=== PATIENT | female | born 2000 | race Caucasian/White ===

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

== ENCOUNTER → 2022-05-06 | Outpatient (CLI) | payer MEDICAID ==
[~2022-05-06] MED LIST changes: +ACHD5005 PO; +BENZ78AE5 TP; +DIBU30OI TOP; +DOCU-239 PO; +FERR325T18 PO; +IBUP-844 PO
--- NOTE | 2022-05-06 17:16 | Diagnostic Imaging Report ---
INDICATION: patient, anatomical survey. TECHNIQUE: Multiple real-time grayscale images were obtained over the gravid uterus. COMPARISON: None during this . FINDINGS: A single live intrauterine fetus is seen measuring 20 weeks 4 days by composite measurements. The fetus is in breech presentation. heart rate is 129 bpm. Amniotic fluid index is 7.8 cm. Placenta is posterior with no evidence of previa. Cervical length is 4.2 cm. Distance from the inferior tip of the placenta to the internal os was 4.7 cm. There is no evidence of abruption. Maternal adnexa were not well seen but there is no overt free fluid. survey demonstrates normal appearance of the kidneys and bladder. stomach was seen and was unremarkable. The intracranial ventricles were normal. Four-chamber heart view appeared normal. Views of the spine were unremarkable. Three-vessel cord and cord insertion appeared unremarkable. Biometrical measurements are as follows: Biparietal 4.40 cm, age 19 weeks 3 days. Head circumference 18.13 cm, age 20 weeks 4 days. Abdominal circumference 15.74 cm, age 21 weeks 0 days. Femur length 3.48 cm, age 21 weeks 0 days. Sonographic estimate age: 20 weeks 4 days. Sonographic estimated date of delivery: 09/19/2022. Estimated Weight: 380 gm (+/- 56 gm). LMP percentile: 43%. heart rate: 129 beats per minute. number: 1 of 1. IMPRESSION: Single live intrauterine fetus measuring 20 weeks 4 days in size, as described above. There is no detectable abnormality. The fetus is in breech presentation at this time. Dictated by: Dictated on workstation # [id number]
== END ==
LOC: RAD 15:15
PROVIDERS: ATTEND Nurse Practitioner Women's Health
DX: Z34.02 Encounter for supervision of normal first pregnancy, second trimester (principal); Z3A.20 20 weeks gestation of pregnancy
CPT/HCPCS: 76805

== ENCOUNTER 2022-08-12 19:31 | Outpatient (CLI) | payer MEDICAID ==
[~2022-08-12] VITALS: Ht 170.2 cm; Wt 128.6 kg
[2022-08-12 18:33] VITALS: BP 103/53
[2022-08-12 19:15] VITALS: BP 103/53
[2022-08-12 19:42] VITALS: BP 103/53
--- NOTE | 2022-08-13 09:16 | Physician Query-Final Dx ---
CHRISTINA08/13/22 0916: Clinic Account Progress/Dx Physician Query: Please give diagnosis Please include # weeks gestation Date of Service Aug 12, 2022 at 19:31 EZEKIEL LOPEZ DO 08/13/22 0933: Clinic Account Progress/Dx DIAGNOSIS: Diagnosis 22 yo @ 33 weeks Decreased movement Irregular cramping CHRISTINA,SepAug 13, 2022 09:16 EZEKIEL LOPEZ DO Aug 13, 2022 09:33
== END 2022-08-12 19:42 | disposition home or self-care (01) ==
LOC: WSo 19:31 → LDRP 19:31 → WSo 19:42
PROVIDERS: ATTEND Obstetrics & Gynecology
DX: O36.8130 Decreased fetal movements, third trimester, not applicable or unspecified (principal); Z3A.33 33 weeks gestation of pregnancy

== ENCOUNTER 2022-09-13 06:30 | Inpatient (IN) | payer MEDICAID ==
[~2022-09-13] VITALS: Ht 170.2 cm; Wt 129.5 kg
[2022-09-13] VITALS (64 sets, daily range): BP systolic 94–148; BP diastolic 49–84
--- OUTSIDE RECORDS SUMMARY | 2022-09-13 06:42 | XMS REPORT | Clinical Summary ---
Author Author [facility] Address Unknown Phone Unavailable Care Team Providers Care Manager Cleaning Name Role Phone Benjy Serna MD PCP Allergies No known active allergies Medications No known medications Active Problems Comments Yes No additional problems on file Social History Date Tobacco Use Types Packs/Day Years Used Smoking Tobacco: Never Assessed Comments Yes Sex Assigned at Date Recorded Not on file Last Filed Vital Signs Reading Time Taken Comments Vital Sign 106/58 02/21/2022 12:04 AM CDT Blood Pressure 82 02/21/2022 12:35 AM CDT Pulse 37.1 C (98.8 F) 02/21/2022 12:04 AM CDT Temperature 18 02/21/2022 12:04 AM CDT Respiratory Rate 98% 02/21/2022 12:35 AM CDT Oxygen Saturation - - Inhaled Oxygen Concentration 122.6 kg (270 lb 4.8 oz) 02/20/2022 10:16 PM CDT Weight 170.2 cm (5' 7") 02/20/2022 10:16 PM CDT Height 42.33 02/20/2022 10:16 PM CDT Body Mass Index Plan of Treatment Health Maintenance Due Date Last Done Comments COVID-19 Vaccine (#1) 2001 HPV Vaccines (1 - 2-dose 2012 series) MenB Vaccine (Bexsero) (1 2017 of 2) Cervical Cancer Screening 2022 Influenza Vaccine (#1) 2022 DTaP,Tdap,and Td Vaccines 09/30/2030 09/30/2020, (8 - Td or Tdap) 11/08/2012, 06/27/2006, Additional history exists HIB Vaccines Completed 10/10/2003, 2001, 2001 IPV Vaccines Completed 06/27/2006, 10/10/2003, 2001, Additional history exists MMR Vaccines-Adult Completed 06/27/2006, 10/10/2003 Varicella Vaccines Completed 08/28/2009, 10/10/2003 Meningococcal Vaccine Aged Out 05/10/2013 No longe r eligible based on patient's age to complete this topic HIV Screening Completed 01/22/2022 Hepatitis C Screening Completed 01/22/2022 Pneumo-Vaccine: At Risk Aged Out No longer elig ible based on patient's age to 6-64 Yrs complete this topic Rotavirus Vaccines Aged Out No longer eligible based on patient's age to complete this topic Results Not on filefrom Last 3 Months Insurance Type Payer Benefit Subscriber ID Effective Phone Address Plan / Dates Group [facility] 19 [id number] 2022-P [id number] Care Teams Start Date End Date Manager Cleaning Relationship Specialty 02/20/22 Benjy Serna MD PCP - General [address] [place] [address]
--- OUTSIDE RECORDS SUMMARY | 2022-09-13 06:42 | XMS REPORT | Clinical Summary ---
Author Author [facility] Address Unknown Phone Unavailable Care Team Providers Care Motel Manager Name Role Phone Pcp, None PCP Unavailable Allergies No known active allergies Medications No known medications Active Problems Estimated Date of Delivery Comments Yes 09/21/2022 Based on Ultrasound No additional problems on file Social History Date Tobacco Use Types Packs/Day Years Used Smoking Tobacco: Never Smokeless Tobacco: Never Comments Alcohol Use Standard Drinks/Week Never 0 (1 standard drink = 0.6 o z pure alcohol) Estimated Date of Delivery Comments Yes 09/21/2022 Based on Ultrasound Sex Assigned at Date Recorded Female 01/30/2022 2:27 PM CDT Industry Job Start Date Occupation Not on file Not on file Not on file Last Filed Vital Signs Reading Time Taken Comments Vital Sign - - Blood Pressure - - Pulse - - Temperature - - Respiratory Rate - - Oxygen Saturation - - Inhaled Oxygen Concentration 121 kg (266 lb) 01/22/2022 10:09 AM CDT Weight 170.2 cm (5' 7") 01/22/2022 10:09 AM CDT Height 41.66 01/22/2022 10:09 AM CDT Body Mass Index Plan of Treatment Health Maintenance Due Date Last Done Comments Preventative Visit 18-64 2001 COVID-19 Vaccine (#1) 2001 HPV Vaccines (1 - 2-dose 2012 series) Depression Screening 2013 Pap Smear 2022 Influenza Vaccine (#1) 2022 DTaP,Tdap,and Td Vaccines 09/30/2030 09/30/2020, (8 - Td or Tdap) 11/08/2012, 06/27/2006, Additional history exists HIB Vaccines Completed 10/10/2003, 2001, 2001 Hepatitis B Vaccines Completed 10/10/2003, 2001, 2001 Hepatitis A Vaccines Completed 05/25/2004, 10/10/2003 IPV Vaccines Completed 06/27/2006, 10/10/2003, 2001, Additional history exists MMR Vaccines Completed 06/27/2006, 10/10/2003 Varicella Vaccines Completed 08/28/2009, 10/10/2003 Meningococcal Vaccine Aged Out 05/10/2013 No longe r eligible based on patient's age to complete this topic Hepatitis C Screening Completed 01/22/2022 Pneumococcal Aged Out No longer eligible based on patient's age to complete this topic Results Not on filefrom Last 3 Months Insurance Type Payer Benefit Subscriber ID Effective Phone Address Plan / Dates Group [facility] MEDICAID REPLACEMENT [facility] [id number] 2022- [address] MEDICAID Present [id number] [facility] [place] [id number] Care Teams Start Date End Date Motel Manager Relationship Specialty 01/22/22 Pcp, None PCP - General Family 0000 Medicine
[2022-09-13] MEDS ORDERED: OXYTOCIN PRE-MIX DRIP 500 ML IV SCH (06:45)
[2022-09-13 07:10] LABS: BASOPHILS % (AUTO) 0 % (0-10); EOSINOPHILS # (AUTO) 0.2 10^3/uL (0.0-0.3); EOSINOPHILS % (AUTO) 2 % (0-10); HEMATOCRIT 33 % (35-52); HEMOGLOBIN 11.2 g/dL (11.5-16.0); LYMPHOCYTES # (AUTO) 1.2 10^3/uL (1.0-4.0); LYMPHOCYTES % (AUTO) 11 % (12-44); MEAN CORPUSCULAR HEMOGLOBIN 29 pg (25-34); MEAN CORPUSCULAR HGB CONC 34 g/dL (32-36); MEAN CORPUSCULAR VOLUME 87 fL (80-99); MEAN PLATELET VOLUME 11.2 fL (9.0-12.2); MONOCYTES # (AUTO) 0.8 10^3/uL (0.0-1.0); MONOCYTES % (AUTO) 7 % (0-12); NEUTROPHILS # (AUTO) 8.5 10^3/uL (1.8-7.8); NEUTROPHILS % (AUTO) 79 % (42-75); PLATELET COUNT 221 10^3/uL (130-400); WHITE BLOOD COUNT 10.8 10^3/uL (4.3-11.0)
[2022-09-13] MEDS: D5 LR IV SOLUTION 1,000 ML IV SCH ×2 (07:11→15:27)
[2022-09-13] MEDS ORDERED: AMPICILLIN FOR IV USE 2,000 MG in NS (IVPB) 50 ML IV ONE (07:12)
[2022-09-13 07:15] LABS: BILIRUBIN,URINE NEGATIVE (NEGATIVE); CLARITY,URINE CLEAR; COLOR,URINE YELLOW; GLUCOSE, URINE (UA) NEGATIVE (NEGATIVE); KETONES,URINE NEGATIVE (NEGATIVE); LEUKOCYTE ESTERASE ,URINE 2+ (NEGATIVE); NITRITE,URINE NEGATIVE (NEGATIVE); PH,URINE 6.5 (5-9); PROTEIN,URINE NEGATIVE (NEGATIVE)
--- NOTE | 2022-09-13 07:20 | History & Physical-OB ---
OB - Chief Complaint & HPI Date/Time Date of Admission: Date of Admission: Sep 13, 2022 at 06:39 Date seen by a Provider: Sep 13, 2022 Time Seen by a Provider: 07:25 Chief Complaint/History Hx : 2 Hx Para: 1 Expected Date of Delivery: Sep 17, 2022 Gestational Age in Weeks: 39 Gestational Age in Days: 3 Admission Nurse Assessment Rev: Yes History of Labs O pos Antibody neg RI RPR NR HBsAg NR HIV NR GC neg GBS pos Allergies and Home Medications Allergies Coded Allergies: Penicillins (Verified Allergy, Unknown, 10/25/20) Patient Home Medication List Home Medication List Reviewed: Yes [id number]/FA/Omega3/Dha/Fish Oil ( Gummies) 1 Each Tab.chew, 1 EACH PO DAILY, (Reported) Entered as Reported by: SEPNCER SHIELDS on 10/25/20 0240 OB - History Hx of Present Care: Yes Ultrasounds: Normal mid trimester US Obstetrical Complications: None Medical Complications: None Patient Past Medical History n/a Social History/Family History 2nd Hand Smoke Exposure: No Immunizations Influenza Vaccine Up-to-Date: No; Not Current Hepatitis A: Yes Hepatitis B: Yes OB - Admission Exam Physical Exam HEENT: NCAT Heart: Rhythm Normal Lungs: Clear Abdomen: Gravid Extremities: Normal Reflexes: Normal Cervical Dilatation: 3cm Effacement: 75% Station: -2 Membranes: Intact Heart Rate: 130's Accelerations: Accelerations Present Decelerations: No Decelerations Short Term Variability: Present Toll Gate Keeper Variability: Average (6-25) Contractions on Admission: 6-10 Minutes Apart Intensity: Mild Cho Scoring Tool (Modified) Dilation (cm): 3-4cm (2) Effacement (%): 51-79% (2) Descent/Station: -1,0 (2) Cervix Consistency: Soft (2) Cervix Position: Anterior (2) Cho Score: 10 Labs Laboratory Tests Test 09/13/22 06:50 Range/Units White Blood Count 10.8 4.3-11.0 10^3/uL Red Blood Count 3.84 3.80-5.11 10^6/uL Hemoglobin 11.2 L 11.5-16.0 g/dL Hematocrit 33 L 35-52 % Mean Corpuscular Volume 87 80-99 fL Mean Corpuscular Hemoglobin 29 25-34 pg Mean Corpuscular Hemoglobin Concent 34 32-36 g/dL Red Cell Distribution Width 14.5 10.0-14.5 % Platelet Count 221 130-400 10^3/uL Mean Platelet Volume 11.2 9.0-12.2 fL Immature Granulocyte % (Auto) 1 % Neutrophils (%) (Auto) 79 H 42-75 % Lymphocytes (%) (Auto) 11 L 12-44 % Monocytes (%) (Auto) 7 0-12 % Eosinophils (%) (Auto) 2 0-10 % Basophils (%) (Auto) 0 0-10 % Neutrophils # (Auto) 8.5 H 1.8-7.8 10^3/uL Lymphocytes # (Auto) 1.2 1.0-4.0 10^3/uL Monocytes # (Auto) 0.8 0.0-1.0 10^3/uL Eosinophils # (Auto) 0.2 0.0-0.3 10^3/uL Basophils # (Auto) 0.0 0.0-0.1 10^3/uL Immature Granulocyte # (Auto) 0.1 0.0-0.1 10^3/uL OB - Assessment/Plan/Diagnosis Assessment Assessment: induction of labor Admission Dx 22 yo @ 39.3 Elective IOL GBS pos Admission Status: Inpatient Order (span 2 midnights) Reason for Inpatient Admission: IOL at 39 weeks Plan Plan: Induction EZEKIEL LOPEZ DO Sep 13, 2022 07:20
[2022-09-13 07:25] LABS: BACTERIA,URINE FEW /HPF; RBC,URINE RARE /HPF
[2022-09-13] MEDS ORDERED: AMPICILLIN 2,000 MG/14.8 ML (IV USE) ONE (07:26)
[2022-09-13] MEDS ORDERED: NS (IVPB) 50 ML ONE (07:27)
[2022-09-13] MEDS ORDERED: NS (IVPB) 0 ML ONE (07:28)
[2022-09-13] MEDS: AMPICILLIN FOR IV USE 1,000 MG in NS (IVPB) 50 ML IV SCH ×3 (11:28→19:29)
[2022-09-13] MEDS ORDERED: CATHETER FLUSH 10 ML SYR IV SCH (14:00)
[2022-09-13] MEDS ORDERED: LIDOCAINE 1% INJ 20 ML VIAL IJ PRN (15:00)
[2022-09-13] MEDS ORDERED: fentaNYL 2 mcg/ml BUPIVA 0.125 100 ML ONE (17:48)
[2022-09-13] MEDS ORDERED: fentaNYL INJ 100 MCG/2 ML AMP ONE (18:39)
[2022-09-13] MEDS ORDERED: BUPIVACAINE 0.25% 30 ML (SENSORCAINE) VIAL ONE (18:39)
[2022-09-13] MEDS ORDERED: fentaNYL 2 mcg/ml BUPIVA 0.125 100 ML IV SCH (19:00)
[2022-09-13] MEDS ORDERED: LACTATED RINGERS 1,000 ML IV ONE (19:00)
[2022-09-13] MEDS ORDERED: CATHETER FLUSH 10 ML SYR IV PRN (19:00)
[2022-09-13] MEDS ORDERED: NALOXONE 0.4 MG/ML 1 ML (NARCAN) VIAL IV PRN ×2 (19:00→23:45)
[2022-09-13] MEDS ORDERED: diphenhydrAMINE 50 MG/ML INJ (BENADRYL) ONE (19:53)
[2022-09-13] MEDS ORDERED: diphenhydrAMINE 50 MG/ML INJ (BENADRYL) IV PRN (20:00)
[2022-09-13] MEDS: OXYTOCIN PRE-MIX DRIP 500 ML IV SCH ×2 (23:21→23:53)
[2022-09-13] MEDS ORDERED: METHYLERGONOVINE 0.2 MG/ML (METHERGINE) AMP ONE (23:30)
--- NOTE | 2022-09-13 23:38 | OB Labor & Delivery Record ---
L&D History Date of Service Date of Service: Sep 13, 2022 History Expected Date of Delivery: Sep 17, 2022 Gestational Age in Weeks: 39 Hx : 2 Hx Para: 1 Complications Events: Routine care Operative Indications (Cesarea: N/A-Vaginal Delivery Intrapartal Events: None L&D Stage1 Stage One Onset of Labor - Date: Sep 13, 2022 Monitors and Tracing Monitor Mode: External Heart Rate: 150 Monitor Accelerations: Uniform Monitor Decelerations: Variable Station: -3 Penitentiary Variability: Average (6-10) Short Term Variability: Present Presentation: Vertex Vital Signs VS - Last 72 Hours, by Label 09/13/22 09/13/22 09/13/22 09/13/22 07:07 08:10 08:24 08:41 Temp 36.6 Pulse 112 104 106 101 Resp 18 16 18 B/P (MAP) 95/59 (71) 110/52 (71) 111/53 (72) 111/55 (73) O2 Delivery Room Air Room Air Room Air 09/13/22 09/13/22 09/13/22 09/13/22 08:55 09:09 09:24 09:40 Temp 36.7 Pulse 100 95 93 86 Resp 18 18 18 18 B/P (MAP) 113/55 (74) 109/57 (74) 105/59 (74) 101/59 (73) O2 Delivery Room Air Room Air Room Air Room Air 09/13/22 09/13/22 09/13/22 09/13/22 09:55 10:11 10:25 10:39 Temp 36.4 Pulse 96 93 85 89 Resp 16 18 18 18 B/P (MAP) 108/75 (86) 115/76 (89) 107/53 (71) 114/56 (75) O2 Delivery Room Air Room Air Room Air Room Air 09/13/22 09/13/22 09/13/22 09/13/22 10:56 11:10 11:25 11:39 Pulse 88 88 79 81 Resp 16 16 18 18 B/P (MAP) 99/59 (72) 103/63 (76) 131/62 (85) 118/58 (78) O2 Delivery Room Air Room Air Room Air Room Air 09/13/22 09/13/22 09/13/22 09/13/22 11:54 12:10 12:26 12:40 Temp 36.5 Pulse 88 83 84 Resp 18 18 18 B/P (MAP) 123/67 (85) 124/60 (81) 126/56 (79) 148/59 (88) O2 Delivery Room Air Room Air Room Air Room Air 09/13/22 09/13/22 09/13/22 09/13/22 13:00 13:10 13:25 13:40 Temp 36.4 Pulse 91 95 85 94 Resp 18 18 16 16 B/P (MAP) 140/63 (88) 142/62 (88) 124/58 (80) 128/58 (81) O2 Delivery Room Air Room Air Room Air Room Air 09/13/22 09/13/22 09/13/22 09/13/22 13:55 14:10 14:25 14:40 Temp 36.4 Pulse 77 86 85 90 Resp 18 18 18 18 B/P (MAP) 117/61 (79) 115/61 (79) 105/62 (76) 115/57 (76) O2 Delivery Room Air Room Air Room Air Room Air 09/13/22 09/13/22 09/13/22 09/13/22 15:00 15:10 15:25 15:40 Temp 36.5 Pulse 90 86 90 87 Resp 18 18 18 16 B/P (MAP) 117/56 (76) 116/55 (75) 124/57 (79) 116/59 (78) O2 Delivery Room Air Room Air Room Air Room Air 09/13/22 09/13/22 09/13/22 09/13/22 15:55 16:10 16:25 16:40 Temp 36.4 Pulse 81 76 82 80 Resp 16 18 18 18 B/P (MAP) 112/54 (73) 115/62 (79) 112/54 (73) 121/53 (75) O2 Delivery Room Air Room Air Room Air Room Air 09/13/22 09/13/22 09/13/22 09/13/22 16:55 17:10 17:25 17:40 Temp 36.5 Pulse 81 85 96 90 Resp 16 16 20 20 B/P (MAP) 117/55 (75) 116/54 (74) 132/84 (100) 129/83 (98) O2 Delivery Room Air Room Air Room Air Room Air 09/13/22 09/13/22 09/13/22 09/13/22 17:55 18:09 18:17 18:39 Pulse 84 92 86 71 Resp 18 20 18 18 B/P (MAP) 134/60 (84) 127/64 (85) 106/67 (80) 100/59 (73) Pulse Ox 100 100 100 O2 Delivery Room Air Room Air Room Air Room Air 09/13/22 09/13/22 09/13/22 09/13/22 18:41 18:43 18:46 18:49 Pulse 75 79 78 71 Resp 18 18 18 18 B/P (MAP) 106/57 (73) 111/57 (75) 106/56 (73) 104/55 (71) Pulse Ox 100 99 99 99 O2 Delivery Room Air Room Air Room Air Room Air 09/13/22 09/13/22 09/13/22 09/13/22 18:52 18:55 18:58 19:06 Pulse 77 83 74 97 Resp 16 16 16 16 B/P (MAP) 101/57 (72) 103/55 (71) 105/58 (74) 130/54 (79) Pulse Ox 99 100 100 99 O2 Delivery Room Air Room Air Room Air Room Air 09/13/22 09/13/22 09/13/22 09/13/22 19:16 19:38 19:53 20:23 Pulse 78 80 94 74 Resp 16 16 16 16 B/P (MAP) 115/55 (75) 94/55 (68) 98/56 (70) 103/55 (71) Pulse Ox 100 98 98 98 O2 Delivery Room Air Room Air Room Air Room Air 09/13/22 09/13/22 09/13/22 09/13/22 20:38 20:53 21:08 21:38 Pulse 77 76 81 88 Resp 16 16 16 16 B/P (MAP) 102/54 (70) 115/54 (74) 118/56 (76) 126/58 (80) Pulse Ox 98 100 100 100 O2 Delivery Room Air Room Air Room Air Room Air 09/13/22 09/13/22 09/13/22 21:53 22:09 22:26 Temp 36.6 Pulse 79 96 99 Resp 16 16 16 B/P (MAP) 120/54 (76) 124/58 (80) 125/56 (79) Pulse Ox 100 99 100 O2 Delivery Room Air Room Air Room Air Rupture of Membranes Spontaneous Ruture of Membrane: No Amniotic Membrane Rupture Time: 0730 Amniotic Membrane Fluid Desc.: Clear Vaginal Bleeding Description: Normal Show Induction/Anesthesia Epidural Cath Placement - Time: 1833 Progress/Notes Patient brought in for elective IOL, AROM and Pitocin started this AM. Epidural placed this afternoon, with continued pitocin augmentation patient progressed to complete and +1 station. L&D Stage2 Stage Two Stage II Date: Sep 13, 2022 Monitors and Tracing Monitor Mode: External Heart Rate: 150 Monitor Accelerations: Uniform Monitor Decelerations: Variable Stockroom Supervisor Variability: Average (6-10) Short Term Variability: Present Position: Right Occiput Anterior Presentation: Vertex Cord Descript/Complications Cord Vessel Description: 3 Vessels Delivery Type Infant Delivery Method: Spontaneous Vaginal Anterior Shoulder: Right Episiotomy/Perineal Laceration Laceraction(s)/Extensions: Yes Episiotomy Description: Perineal Extension/lac, 1st degree Degree (describe repair) laceration repaired using 3-0 rapide suture in usual fashion. Condition of Delivery 1 minute Comment: 8 5 minute Comment: 9 Notes Live female weight 7lbs 4 oz Condition of Condition of Infant: Living Exam: No Observed Abnormalities Resuscitation Resuscitation: N/A - Spontaneous Resp L&D Stage3 Stage Three Stage III Date: Sep 13, 2022 Pictocin Pitocin Administration mu/min: 20 Pitocin ml/hr: 20 Pitocin Administration Comment: 30 mu wide open after delivery of placenta Placenta Delivery Placenta Delivery: Spontaneous Delivery Summary Summary Estimated blood loss (mL): 400 Attending at delivery: Rubén Lopez DO Condition of Delivery Examined: Cervix Examined, Uterus Explored Post Hemorrhage: No Intervention Required methergine 0.2 mg IM given x 1 dose Condition of Mother stable Condition of Infant (s) stable RUBÉN LOPEZ DO Sep 13, 2022 23:38
[2022-09-13] MEDS ORDERED: TETANUS,DIPTH,PERTUSS P/F (BOOSTRIX) 0.5 ML VIAL IM ONE (23:45)
[2022-09-13] MEDS ORDERED: MEASLES,MUMPS,RUBELLA 1 EA INJ SQ ONE (23:45)
[2022-09-13] MEDS ORDERED: WITCH HAZEL(TUCKS) 40 EA JAR TOP PRN (23:45)
[2022-09-13] MEDS ORDERED: BENZOCAINE/MENTHOL (DERMOPLAST) 56 ML CAN TP PRN (23:45)
[2022-09-13] MEDS ORDERED: METHYLERGONOVINE 0.2 MG/ML (METHERGINE) AMP IM ONE (23:45)
[2022-09-13] MEDS ORDERED: DIBUCAINE 1% OINTMENT 30 GM TUBE TOP PRN (23:45)
[2022-09-14] VITALS (9 sets, daily range): BP systolic 100–127; BP diastolic 51–76
[2022-09-14] MEDS ORDERED: METHYLERGONOVINE 0.2 MG/ML (METHERGINE) AMP IM ONE (00:30)
[2022-09-14] MEDS: ACETAMINOPHEN 500 MG TAB (TYLENOL) PO SCH ×4 (01:48→20:24)
[2022-09-14] MEDS: IBUPROFEN 600 MG (MOTRIN) TAB PO SCH ×4 (01:48→20:23)
[2022-09-14] MEDS ORDERED: CATHETER FLUSH 10 ML SYR IV SCH (06:00)
[2022-09-14 06:35] LABS: BASOPHILS % (AUTO) 0 % (0-10); EOSINOPHILS # (AUTO) 0.1 10^3/uL (0.0-0.3); EOSINOPHILS % (AUTO) 1 % (0-10); HEMATOCRIT 29 % (35-52); HEMOGLOBIN 9.8 g/dL (11.5-16.0); LYMPHOCYTES # (AUTO) 1.4 10^3/uL (1.0-4.0); LYMPHOCYTES % (AUTO) 12 % (12-44); MEAN CORPUSCULAR HEMOGLOBIN 30 pg (25-34); MEAN CORPUSCULAR HGB CONC 34 g/dL (32-36); MEAN CORPUSCULAR VOLUME 88 fL (80-99); MEAN PLATELET VOLUME 12.1 fL (9.0-12.2); MONOCYTES # (AUTO) 0.8 10^3/uL (0.0-1.0); MONOCYTES % (AUTO) 6 % (0-12); NEUTROPHILS # (AUTO) 10.1 10^3/uL (1.8-7.8); NEUTROPHILS % (AUTO) 80 % (42-75); PLATELET COUNT 203 10^3/uL (130-400); WHITE BLOOD COUNT 12.5 10^3/uL (4.3-11.0)
--- NOTE | 2022-09-14 07:36 | Postpartum Progress Note ---
Note Note Day # 1 Subjective: Patient is without complaints. Ambulating, voiding. Tolerating a regular diet without nausea or vomiting. Normal lochia. Pain is well controlled with oral pain medications. Objective: Physical Exam: General - Alert and oriented, no apparent distress Abdomen - Soft, appropriately tender to palpation, non-distended, fundus firm at umbilicus Extremities - no edema, negative Asif's bilaterally Assessment: PPD 1 NVD Acute blood loss anemia Plan: Routine care. Encourage breast feeding. Encourage ambulation. Ferrous sulfate supplementation. Plan for discharge tomorrow Vitals - Labs Vital Signs - I&O Vital Signs Date Time Temp Pulse Resp B/P (MAP) Pulse Ox O2 Delivery O2 Flow Rate FiO2 09/14/22 05:00 35.9 96 16 121/74 (90) 97 Room Air 09/14/22 01:08 103 16 122/60 (80) Room Air 09/14/22 00:38 99 16 110/58 (75) Room Air 09/14/22 00:23 90 16 100/51 (67) Room Air 09/14/22 00:07 88 16 110/54 (72) Room Air 09/13/22 23:53 108 16 105/49 (67) Room Air 09/13/22 22:26 99 16 125/56 (79) 100 Room Air 09/13/22 22:09 96 16 124/58 (80) 99 Room Air 09/13/22 21:53 36.6 79 16 120/54 (76) 100 Room Air 09/13/22 21:38 88 16 126/58 (80) 100 Room Air 09/13/22 21:08 81 16 118/56 (76) 100 Room Air 09/13/22 20:53 76 16 115/54 (74) 100 Room Air 09/13/22 20:38 77 16 102/54 (70) 98 Room Air 09/13/22 20:23 74 16 103/55 (71) 98 Room Air 09/13/22 19:53 94 16 98/56 (70) 98 Room Air 09/13/22 19:38 80 16 94/55 (68) 98 Room Air 09/13/22 19:16 78 16 115/55 (75) 100 Room Air 09/13/22 19:06 97 16 130/54 (79) 99 Room Air 09/13/22 18:58 74 16 105/58 (74) 100 Room Air 09/13/22 18:55 83 16 103/55 (71) 100 Room Air 09/13/22 18:52 77 16 101/57 (72) 99 Room Air 09/13/22 18:49 71 18 104/55 (71) 99 Room Air 09/13/22 18:46 78 18 106/56 (73) 99 Room Air 09/13/22 18:43 79 18 111/57 (75) 99 Room Air 09/13/22 18:41 75 18 106/57 (73) 100 Room Air 09/13/22 18:39 71 18 100/59 (73) 100 Room Air 09/13/22 18:17 86 18 106/67 (80) 100 Room Air 09/13/22 18:09 92 20 127/64 (85) 100 Room Air 09/13/22 17:55 84 18 134/60 (84) Room Air 09/13/22 17:40 90 20 129/83 (98) Room Air 09/13/22 17:25 96 20 132/84 (100) Room Air 09/13/22 17:10 36.5 85 16 116/54 (74) Room Air 09/13/22 16:55 81 16 117/55 (75) Room Air 09/13/22 16:40 80 18 121/53 (75) Room Air 09/13/22 16:25 82 18 112/54 (73) Room Air 09/13/22 16:10 36.4 76 18 115/62 (79) Room Air 09/13/22 15:55 81 16 112/54 (73) Room Air 09/13/22 15:40 87 16 116/59 (78) Room Air 09/13/22 15:25 90 18 124/57 (79) Room Air 09/13/22 15:10 36.5 86 18 116/55 (75) Room Air 09/13/22 15:00 90 18 117/56 (76) Room Air 09/13/22 14:40 90 18 115/57 (76) Room Air 09/13/22 14:25 85 18 105/62 (76) Room Air 09/13/22 14:10 36.4 86 18 115/61 (79) Room Air 09/13/22 13:55 77 18 117/61 (79) Room Air 09/13/22 13:40 94 16 128/58 (81) Room Air 09/13/22 13:25 85 16 124/58 (80) Room Air 09/13/22 13:10 36.4 95 18 142/62 (88) Room Air 09/13/22 13:00 91 18 140/63 (88) Room Air 09/13/22 12:40 84 18 148/59 (88) Room Air 09/13/22 12:26 83 18 126/56 (79) Room Air 09/13/22 12:10 36.5 88 18 124/60 (81) Room Air 09/13/22 11:54 123/67 (85) Room Air 09/13/22 11:39 81 18 118/58 (78) Room Air 09/13/22 11:25 79 18 131/62 (85) Room Air 09/13/22 11:10 88 16 103/63 (76) Room Air 09/13/22 10:56 88 16 99/59 (72) Room Air 09/13/22 10:39 36.4 89 18 114/56 (75) Room Air 09/13/22 10:25 85 18 107/53 (71) Room Air 09/13/22 10:11 93 18 115/76 (89) Room Air 09/13/22 09:55 96 16 108/75 (86) Room Air 09/13/22 09:40 36.7 86 18 101/59 (73) Room Air 09/13/22 09:24 93 18 105/59 (74) Room Air 09/13/22 09:09 95 18 109/57 (74) Room Air 09/13/22 08:55 100 18 113/55 (74) Room Air 09/13/22 08:41 101 18 111/55 (73) Room Air 09/13/22 08:24 106 16 111/53 (72) Room Air 09/13/22 08:10 36.6 104 18 110/52 (71) Room Air I & O 09/14/22 07:00 Intake Total 3700 ml Balance 3700 ml Labs Laboratory Tests 09/14/22 05:35: White Blood Count 12.5H, Red Blood Count 3.28L, Hemoglobin 9.8L, Hematocrit 29L, Mean Corpuscular Volume 88, Mean Corpuscular Hemoglobin 30, Mean Corpuscular Hemoglobin Concent 34, Red Cell Distribution Width 14.4, Platelet Count 203, Mean Platelet Volume 12.1, Immature Granulocyte % (Auto) 1, Neutrophils (%) (Auto) 80H, Lymphocytes (%) (Auto) 12, Monocytes (%) (Auto) 6, Eosinophils (%) (Auto) 1, Basophils (%) (Auto) 0, Neutrophils # (Auto) 10.1H, Lymphocytes # (Auto) 1.4, Monocytes # (Auto) 0.8, Eosinophils # (Auto) 0.1, Basophils # (Auto) 0.0, Immature Granulocyte # (Auto) 0.1 EZEKIEL LOPEZ DO Sep 14, 2022 07:36
--- NOTE | 2022-09-14 07:37 | Discharge Inst-Women's Service ---
Discharge Inst-Women's Serv Depart Medication/Instructions New, Converted or Re-Newed RX: Transmitted to Pharmacy Final Diagnosis PPD 2 nVD Problems Reviewed?: Yes Consults/Follow Up Additional Follow Up: Yes Orders/Referrals Dr. Lopez in 6 weeks Activity Activity: Activity as Tolerated Driving Instructions: No Driving for 1 Week NO SMOKING: NO SMOKING Nothing Inside Vagina: No Douching, No Spicer, No Tampons Diet Discharge Diet: No Restrictions Symptoms to Report to : Bleeding Excessive, Pain Increased, Fever Over 101 Degrees F, Vaginal Bleeding Increase, Questions/Concerns For Any Problems or Questions: Contact Your Physician EZEKIEL LOPEZ DO Sep 14, 2022 07:37
[2022-09-14] MEDS ORDERED: BENZ78AE5 TP (07:40)
[2022-09-14] MEDS ORDERED: ACET-93 PO (07:40)
[2022-09-14] MEDS ORDERED: DOCU100C37 PO (07:40)
[2022-09-14] MEDS ORDERED: IBUP-844 PO (07:40)
[2022-09-14] MEDS ORDERED: FERR325T24 PO (07:40)
[2022-09-14] MEDS: DOCUSATE SODIUM 100 MG (COLACE) CAP PO SCH ×2 (08:02→20:23)
[2022-09-14] MEDS: FERROUS SULF 325 MG (IRON) TAB PO SCH (08:02)
[2022-09-14] MEDS: PRENATAL VITAMIN 1 EA TAB PO SCH (08:02)
--- NOTE | 2022-09-14 14:54 | Anesthesia-Regional Post-Op ---
Regional Patient Condition Mental Status: Alert, Oriented x3 Circulation: Same as Pre-Op Headache: Absent Sensation: Full Recovery Motor Block: Absent Post Op Complications Complications None Follow Up Care/Instructions Patient Instructions None needed. Anesthesia/Patient Condition Patient is doing well, no complaints, stable vital signs, no apparent adverse anesthesia problems. No complications reported per nursing. STEFFEN VALADEZ CRNA Sep 14, 2022 14:54
[2022-09-15 01:59] VITALS: BP 122/64
[2022-09-15] MEDS: IBUPROFEN 600 MG (MOTRIN) TAB PO SCH ×2 (01:59→09:22)
[2022-09-15] MEDS: PRENATAL VITAMIN 1 EA TAB PO SCH (09:18)
[2022-09-15] MEDS: FERROUS SULF 325 MG (IRON) TAB PO SCH (09:19)
[2022-09-15] MEDS: ACETAMINOPHEN 500 MG TAB (TYLENOL) PO SCH (09:19)
[2022-09-15] MEDS: DOCUSATE SODIUM 100 MG (COLACE) CAP PO SCH (09:19)
[2022-09-15 09:24] VITALS: BP 111/70
--- NOTE | 2022-09-15 10:22 | Postpartum Progress Note ---
Note Note Day # 2 Subjective: Patient is without complaints. Ambulating, voiding. Tolerating a regular diet without nausea or vomiting. Normal lochia. Pain is well controlled with oral pain medications. Physical Exam: General - Alert and oriented, no apparent distress Abdomen - Soft, appropriately tender to palpation, non-distended, fundus firm at umbilicus Extremities - no edema, negative Asif's bilaterally Assessment: Post- day # 2, status post vaginal delivery. Recovering well, hemodynamically stable Acute blood loss anemia Plan: Routine care. Encourage breast feeding. Encourage ambulation. Ferrous sulfate supplementation. Plan for discharge today Vitals - Labs Vital Signs - I&O Vital Signs Date Time Temp Pulse Resp B/P (MAP) Pulse Ox O2 Delivery O2 Flow Rate FiO2 09/15/22 01:59 36.1 68 18 122/64 (83) 98 Room Air 09/14/22 20:30 36.3 70 16 111/64 (80) 98 Room Air 09/14/22 16:00 36.6 85 16 127/76 (93) 98 Room Air 09/14/22 12:10 36.4 80 18 108/60 (76) 98 Room Air Labs Microbiology 09/13/22 Urine Culture - Final, Complete Gram Pos Mixed Bacterial Emilie CAROLINE RESENDIZ APRN Sep 15, 2022 10:22
== END 2022-09-15 12:20 | disposition home or self-care (01) | DRG 806 ==
LOC: LDRP 06:39 → WS 10:51 → LDRP 09-14 02:34
PROVIDERS: ADMIT Obstetrics & Gynecology; ATTEND Obstetrics & Gynecology
PROC: 10E0XZZ Delivery of Products of Conception, External Approach (ICD-10-PCS; principal; 2022-09-13)
PROC: 0HQ9XZZ Repair Perineum Skin, External Approach (ICD-10-PCS; 2022-09-13)
PROC: 3E033VJ Introduction of Other Hormone into Peripheral Vein, Percutaneous Approach (ICD-10-PCS; 2022-09-13)
PROC: 10907ZC Drainage of Amniotic Fluid, Therapeutic from Products of Conception, Via Natural or Artificial Opening (ICD-10-PCS; 2022-09-13)
DX: O99.824 Streptococcus B carrier state complicating childbirth (principal); D62 Acute posthemorrhagic anemia; Z37.0 Single live birth; O70.0 First degree perineal laceration during delivery; O90.81 Anemia of the puerperium; Z3A.39 39 weeks gestation of pregnancy; Z88.0 Allergy status to penicillin
CPT/HCPCS: 36415; 81000; 85025; 86780; 86850; 86900; 86901; 87088

== ENCOUNTER 2022-10-02 15:43 | Emergency (ER) | payer MEDICAID ==
[~2022-10-02] VITALS: Ht 170.1 cm; Wt 129.5 kg
[~2022-10-02 15:43] MED LIST changes: +ACET-93 PO; +DOCU100C37 PO; +FERR325T24 PO
[2022-10-02] MEDS ORDERED: ACETAMINOPHEN 500 MG TAB (TYLENOL) PO STA (15:55)
[2022-10-02 16:19] LABS: BILIRUBIN,URINE NEGATIVE (NEGATIVE); CLARITY,URINE SL CLOUDY; COLOR,URINE AMBER; GLUCOSE, URINE (UA) NEGATIVE (NEGATIVE); KETONES,URINE NEGATIVE (NEGATIVE); LEUKOCYTE ESTERASE ,URINE 3+ (NEGATIVE); NITRITE,URINE NEGATIVE (NEGATIVE); PROTEIN,URINE TRACE (NEGATIVE)
--- NOTE | 2022-10-02 16:20 | ED Cough/URI ---
General Chief Complaint: Fever-Adult/Adol Stated Complaint: FEVER - BODY ACHES- COUGH - BACK PAIN Source: patient Exam Limitations: no limitations History of Present Illness Date Seen by Provider: Oct 02, 2022 Time Seen by Provider: 15:46 Initial Comments Here with report of fever and cough that started yesterday. She also has body aches. Complains of some right flank pain intermittently but denies dysuria or vaginal discharge. She is 3 weeks vaginal delivery without complications. She was seen at [facility] clinic yesterday in [place] and had flu and COVID test done which were negative. Yesterday morning is when she noticed that she was not feeling well for the first time. Today she reports a fever of 105 at home via oral thermometer. She had taken ibuprofen at 430 this morning and at 1030 this morning. She states that she started sweating and fever may have broke. She was afebrile when she got here. Does have mild cough but not a significant sore throat. Does have a little bit of a runny nose. Otherwise denies nausea, vomiting or diarrhea. Timing/Duration: yesterday, getting worse Severity/Quality: mild, dry cough Prior Episodes/Possible Cause: occasional episodes Modifying Factors: Improves With Rest Associated Symptoms: cough, fever/chills, muscle aches, nasal congestion Allergies and Home Medications Allergies Coded Allergies: Penicillins (Verified Allergy, Unknown, 10/25/20) Patient Home Medication List Home Medication List Reviewed: Yes Acetaminophen (Acetaminophen) 500 Mg Tablet, 1,000 MG PO Q6H Prescribed by: EZEKIEL LOPEZ on 09/14/22 0740 Benzocaine/Menthol (Dermoplast Pain Relieving [place]) 20 %-0.5 % Aerosol, 1 EA TP UD PRN for PAIN- SEE INSTRUCTIONS Prescribed by: EZEKIEL LOPEZ on 09/14/22 0740 Docusate Sodium (Docusate Sodium) 100 Mg Capsule, 100 MG PO BID PRN for CONSTIPATION-1ST LINE Prescribed by: EZEKIEL LOPEZ on 09/14/22 0740 Ferrous Sulfate (Ferosul) 325 Mg (65 Mg Iron) Tablet, 325 MG PO DAILY Prescribed by: EZEKIEL LOPEZ on 09/14/22 0740 Ibuprofen (Ibu) 600 Mg Tablet, 600 MG PO Q6H Prescribed by: EZEKIEL LOPEZ on 09/14/22 0740 [id number]/FA/Omega3/Dha/Fish Oil ( Gummies) 1 Each Tab.chew, 1 EACH PO DAILY, (Reported) Entered as Reported by: SPENCER SHIELDS on 10/25/20 0240 Review of Systems Review of Systems Constitutional: see HPI EENTM: see HPI Respiratory: see HPI; No short of breath, No wheezing Genitourinary: see HPI : No Musculoskeletal: see HPI Past Mblcztd-Oyjtgb-Hejzqa Hx Patient Social History Tobacco Use?: No Substance use?: No Alcohol Use?: No Past Medical History Surgery/Hospitalization HX: Leg laceration Surgeries: No Respiratory: No Cardiac: No Neurological: No Hx : 1 Hx Para: 1 Reproductive Disorders: No Family Medical History Reviewed and Corrections made No Pertinent Family Hx Physical Exam Vital Signs - First Documented 10/02/22 15:47 Temp 37.2 Pulse 114 Resp 16 B/P (MAP) 140/89 (106) Pulse Ox 98 O2 Delivery Room Air Capillary Refill : Height: '" Weight: lbs. oz. kg; 44.70 BMI Method: General Appearance: WD/WN, no apparent distress HEENT: PERRL/EOMI, TMs normal, pharyngeal erythema; No tonsillar exudate Neck: full range of motion, supple, normal inspection; No lymphadenopathy (R), No lymphadenopathy (L) Respiratory: lungs clear, normal breath sounds Cardiovascular: no murmur, tachycardia Gastrointestinal: non tender, soft Neurologic/Psychiatric: alert, oriented x 3 Skin: normal color, warm/dry Progress/Results/Core Measures Suspected Sepsis SIRS Temperature: Pulse: Respiratory Rate: Blood Pressure / Mean: Results/Orders Lab Results Laboratory Tests Test 10/02/22 15:50 10/02/22 15:55 Range/Units Influenza Type A (RT-PCR) Not Detected Not Detecte Influenza Type B (RT-PCR) Not Detected Not Detecte SARS-CoV-2 RNA (RT-PCR) Not Detected Not Detecte Urine Color SAI H Urine Clarity SL CLOUDY Urine pH 6.0 5-9 Urine Specific [place] 1.020 1.016-1.022 Urine Protein TRACE H NEGATIVE Urine Glucose (UA) NEGATIVE NEGATIVE Urine Ketones NEGATIVE NEGATIVE Urine Nitrite NEGATIVE NEGATIVE Urine Bilirubin NEGATIVE NEGATIVE Urine Urobilinogen 1.0 < = 1.0 MG/DL Urine Leukocyte Esterase 3+ H NEGATIVE Urine RBC (Auto) 3+ H NEGATIVE Urine RBC >100 H /HPF Urine WBC >100 H /HPF Urine Squamous Epithelial Cells 0-2 /HPF Urine Crystals NONE /LPF Urine Bacteria MODERATE H /HPF Urine Casts NONE /LPF Urine Mucus SMALL H /LPF Urine Culture Indicated YES My Orders Orders - SAMMY BUI MD Ua Culture If Indicated (10/02/22 15:55) Influenza A And B By Pcr (10/02/22 15:55) Covid 19 Inhouse Test (10/02/22 15:55) Acetaminophen Tablet (Tylenol Tablet) (10/02/22 15:55) Urine Culture (10/02/22 15:55) Vital Signs/I&O 10/02/22 15:47 Temp 37.2 Pulse 114 Resp 16 B/P (MAP) 140/89 (106) Pulse Ox 98 O2 Delivery Room Air Capillary Refill : Progress Note : Progress Note Seen and evaluated. We will check for influenza and COVID. We will also check UA given recent history of delivery and intermittent right-sided pain. Abdomen is soft and nontender and she has not had vomiting or diarrhea. No significant tenderness suprapubic. Tylenol 1 g p.o. 4 body aches. Patient is currently afebrile. Differential diagnosis includes COVID, influenza, UTI Urine appears contaminated but there may may be component of UTI. Influenza and COVID are negative. This may just be viral upper respiratory infection but we will go ahead and treat urinary tract infection. Pending culture. Initiated cephalexin antibiotics outpatient. This was sent to the pharmacy. Discharged home with return precautions. Patient verbalized understanding instructions and agreement with plan. OTC meds discussed. Departure Impression Primary Impression: Influenza-like symptoms Additional Impression: Urinary tract infection Qualified Codes: N30.01 - Acute cystitis with hematuria Disposition: HOME, SELF-CARE Condition: Stable Departure-Patient Inst. Decision time for Depature: 16:40 Referrals: NO,LOCAL PHYSICIAN (PCP/Family) Primary Care Physician Patient Instructions: Urinary Tract Infection, Adult (DC), Viral Upper Respiratory Infection, Adult (DC) Add. Discharge Instructions: All discharge instructions reviewed with patient and/or family. Voiced understanding. You may take Tylenol/acetaminophen 1000 mg every 8 hours as needed for fever or pain. You may take ibuprofen 600 mg every 8 hours as needed for fever or pain. Follow-up with your in a few days for recheck. Drink plenty of fluids and get plenty of rest. Follow-up with your doctor in a few days for recheck. Return for worse pain, fever, vomiting, weakness, breathing problems, abdominal pain, foul-smelling vaginal discharge or other concerns as needed. Scripts Cephalexin (Cephalexin) 500 Mg Tablet 500 MG PO BID PRN, #10 TAB 0 Refills Prov: SAMMY BUI MD 10/02/22 SAMMY BUI MD Oct 02, 2022 16:20
[2022-10-02 16:30] LABS: BACTERIA,URINE MODERATE /HPF; RBC,URINE >100 /HPF; SQUAMOUS EPITHELIAL CELL,UR 0-2 /HPF; WBC,URINE >100 /HPF
[2022-10-02] MEDS ORDERED: CEPH500T PO (16:38)
[2022-10-02 16:45] VITALS: BP 104/62
== END 2022-10-02 16:48 | disposition home or self-care (01) ==
LOC: EDUNIT# 15:43 → ER 15:44
DX: O86.20 Urinary tract infection following delivery, unspecified (principal); N39.0 Urinary tract infection, site not specified; O90.89 Other complications of the puerperium, not elsewhere classified; R05.9 Cough, unspecified; R09.81 Nasal congestion; M79.10 Myalgia, unspecified site; Z20.822 Contact with and (suspected) exposure to COVID-19; Z88.1 Allergy status to other antibiotic agents; Z28.310 Unvaccinated for COVID-19
CPT/HCPCS: 81000; 87077; 87088; 87186; 87636; 99283